=== PATIENT | female | born 1965 | race Caucasian/White ===

== ENCOUNTER → 2016-08-19 | Outpatient (CLI) | payer BC | LOC: RAD 08:21 | PROVIDERS: ATTEND Orthopaedic Surgery | DX: S42.252 Displaced fracture of greater tuberosity of left humerus (principal); X58.XXXD Exposure to other specified factors, subsequent encounter ==

== ENCOUNTER 2016-10-08 05:22 | Day surgery (SDC) | payer BC ==
[2016-10-01 09:30] LABS: HEMATOCRIT 42.6 % (36.0-47.0); HEMOGLOBIN 14.5 g/dL (12.0-15.5); HGB HCT DIFFERENCE 0.9; MEAN CORPUSCULAR HEMOGLOBIN 34.5 pg (27.0-33.4); MEAN CORPUSCULAR HGB CONC 34.1 g/dL (32.0-36.0); MEAN CORPUSCULAR VOLUME 101 fl (80-97); RED CELL DISTRIBUTION WIDTH 11.4 % (11.5-14.0)
[2016-10-01 09:39] LABS: APPEARANCE,URINE SLIGHTLY-CLOUDY; BILIRUBIN,URINE NEGATIVE (NEGATIVE); GLUCOSE, URINE NEGATIVE (NEGATIVE); KETONES,URINE NEGATIVE (NEGATIVE); LEUKOCYTE ESTERASE,URINE NEGATIVE (NEGATIVE); NITRITE,URINE NEGATIVE (NEGATIVE); PROTEIN,URINE NEGATIVE (NEGATIVE); URINE SPECIFIC GRAVITY 1.015
[2016-10-01 09:56] LABS: ANION GAP 10 (5-19); BLOOD UREA NITROGEN 12 mg/dL (7-20); CALCIUM 9.6 mg/dL (8.4-10.2); CARBON DIOXIDE 25 mmol/L (22-30); CHLORIDE 108 mmol/L (98-107); GLUCOSE 111 mg/dL (75-110); POTASSIUM 4.3 mmol/L (3.6-5.0); SODIUM 142.5 mmol/L (137-145)
--- NOTE | 2016-10-01 11:12 | EKG REPORT ---
SEVERITY:- ABNORMAL ECG - SINUS RHYTHM SHORT MI INTERVAL, ACCELERATED AV CONDUCTION LVH BY VOLTAGE PROLONGED QT INTERVAL : Confirmed by: Olivia Flores 01-Oct-2016 11:12:05
[~2016-10-08 05:22] MED LIST: CEFAZOLIN 2 GM/D5W RTU 2 GM/50 ML RTUPB IV PRN; LACTATED RINGERS 1000 ML IV PRN; LIDOCAINE 0.5% INJ-PF (5 MG/ML) 50 ML SDV SUBCUT PRN
[2016-10-08] MEDS ORDERED: EPINEPHRINE INJ/PF 1 MG/1 ML AMPULE ONE (06:08)
[2016-10-08] MEDS ORDERED: BUPIVACAINE HCL 0.5 % INJ/PF 30 ML SDV ONE (06:08)
[2016-10-08] MEDS ORDERED: KETOROLAC TROMETHAMINE 60 MG/2 ML SDV ONE (06:38)
[2016-10-08] MEDS ORDERED: HYDROMORPHONE HCL INJ/PF 2 MG/ML AMPULE ONE (06:38)
[2016-10-08] MEDS ORDERED: MIDAZOLAM 2 MG/2 ML INJ ONE (06:38)
[2016-10-08] MEDS ORDERED: FENTANYL CITRATE INJ/PF 250 MCG/5 ML AMPULE ONE (06:38)
[2016-10-08] MEDS ORDERED: ACETAMINOPHEN 100 ML IV ONE (06:38)
[2016-10-08] MEDS ORDERED: PROPOFOL INJ 200 MG/20 ML VIAL IV ONE (06:38)
[2016-10-08] MEDS ORDERED: MORPHINE SULFATE 10 MG/ML INJ IV PRN (06:55)
[2016-10-08] MEDS ORDERED: ONDANSETRON HCL INJ/PF 4 MG/2 ML SDV IV PRN ×2 (06:55→12:08)
[2016-10-08] MEDS ORDERED: FENTANYL CITRATE INJ/PF 100 MCG/2 ML AMPUL IV PRN ×3 (06:55)
[2016-10-08] MEDS ORDERED: MEPERIDINE HCL/PF INJ 25 MG/1 ML DISP.SYRIN IV PRN (06:55)
[2016-10-08] MEDS ORDERED: DIPHENHYDRAMINE HCL 50 MG/ML VIAL IV PRN (06:55)
[2016-10-08] MEDS ORDERED: LABETALOL HCL INJ 20 MG/4 ML DISP.SYRIN IV PRN (06:55)
[2016-10-08] MEDS ORDERED: PROMETHAZINE HCL INJ 25 MG/1 ML VIAL IV PRN (06:55)
[2016-10-08] MEDS ORDERED: EPHEDRINE SULFATE INJ 50 MG/1 ML AMPULE ONE (08:28)
[2016-10-08] MEDS ORDERED: LORAZEPAM INJ 2 MG/1 ML VIAL ONE (12:05)
[2016-10-08] MEDS ORDERED: FENTANYL CITRATE INJ/PF 100 MCG/2 ML AMPUL ONE (12:05)
[2016-10-08] MEDS ORDERED: OXYCODONE-ACETAMINOPHEN 5-325 MG TABLET PO PRN ×2 (12:06→12:07)
[2016-10-08] MEDS ORDERED: OXYCODONE HCL IR 5 MG TABLET PO PRN ×2 (12:07)
[2016-10-08] MEDS ORDERED: ROCURONIUM BROMIDE INJ 50 MG/5 ML VIAL IV ONE (14:22)
[2016-10-08] MEDS ORDERED: NEOSTIGMINE METHYLSULFATE 10 MG/10 ML VIAL ONE (14:22)
[2016-10-08] MEDS ORDERED: SUCCINYLCHOLINE CHLORIDE INJ 200 MG/10 ML VIAL ONE (14:22)
[2016-10-08] MEDS ORDERED: GLYCOPYRROLATE INJ 0.4 MG/2 ML VIAL ONE (14:22)
[2016-10-08 15:52] VITALS: BP 122/75
--- NOTE | 2016-11-11 16:40 | OPERATIVE REPORT E ---
Operative Report NAME: JEANETTE SOLANO : 1965 AGE: 51Y DATE OF SURGERY: 10/08/2016 ROOM: INDICATION: Patient is a 51-year-old female with: PREOPERATIVE DIAGNOSES: 1. A NONUNION OF GREATER TUBEROSITY FRACTURE. 2. FULL-THICKNESS SUPRASPINATUS TENDON TEAR. POSTOPERATIVE DIAGNOSES: 1. A NONUNION OF GREATER TUBEROSITY FRACTURE. 2. FULL-THICKNESS SUPRASPINATUS TENDON TEAR. OPERATION: Left shoulder arthroscopy with an open rotator cuff repair and greater tuberosity pre-osteal symphysis. SURGEON: LEANDER FALLON M.D. ANESTHESIA: General. ESTIMATED BLOOD LOSS: 50 mL. COMPLICATIONS: None. DISPOSITION: Stable to PACU. IMPLANT USED: Four partially-threaded cannulated screws and [employer] BioComposite anchors x1 and BioComposite SwiveLock x1. DESCRIPTION OF PROCEDURE: Patient was brought to the operating room, induced and intubated in supine position. Patient then was secured in a beach chair position where the left shoulder was prepped and draped in a normal sterile surgical fashion. Timeout was done identifying the left shoulder as the correct site. A #11 blade was used to establish the posterior portal and the scope was introduced in the glenohumeral joint. I established the anterior portal and placed a purple cannula. I debrided some synovium, which was inflamed. I visualized the intact long head of the biceps and labrum. I noticed a full tear of the supraspinatus tendon. I was able then to establish a lateral portal where I placed my camera and then from the posterior portal, used a radiofrequency ablator and shaver to expose the greater tuberosity fracture, which was retracted posteromedially. I used a dar then to dar the bone and freshened up the edge. I used the same dar then to freshen up the defect in the greater tuberosity. Once I was satisfied with preparation of the bone, I then turned my attention to removing the instruments and using the lateral portal and extending it distally 2 to 4 cm. I split the deltoid. I placed a retractor hemostasis utilizing a Bovie. After retracting the deltoid and exposing the subacromial space, I was able to grab the fragment and externally rotate the arm and reduce the fragment almost about 90% of its previous position. I was able to place some K-wires to hold it in place and then proceeded to use cannulated screws spanning over these K-wires and measuring and placing appropriate screws with washers. I used the total of 4 screws to hold the greater tuberosity fragment and secured it onto the humerus. I then turned my attention to the rotator cuff where I placed a posterior anchor and used a to pass the FiberWires through the full-thickness tear of the rotator cuff tear. I then proceeded to tie knots and then secure the strands with a SwiveLock establishing . I used an awl to prepare the hole and then placed the PushLock with their strands to the tendon to the bone. Remaining strands were cut with the scissors. I have then proceed to close my wound using 0-Vicryl to approximate the deltoid and 2-0 Vicryl for the dermis and 2-0 nylon for the skin. The 3 portals were closed with 3-0 nylon. Xeroform and 4 x 4 dressing was applied to the wound and then taped with Medipore tape. Patient's drapes were removed and placed in a sling. Patient was then extubated successfully in the supine position. Patient was then taken to PACU in stable condition. DICTATING PHYSICIAN: Vladimir GARIBAY [id number] PHY#: [id number] ID: [id number] JOB#: [id number] ACCT: [id number] cc:LEANDER ADAMS M.D. >
== END 2016-10-08 15:50 | disposition home or self-care (01) ==
LOC: OROUT 05:22
PROVIDERS: ATTEND Orthopaedic Surgery
PROC: 0PSD04Z Reposition Left Humeral Head with Internal Fixation Device, Open Approach (ICD-10-PCS; 2016-10-08)
PROC: 0RJK4ZZ Inspection of Left Shoulder Joint, Percutaneous Endoscopic Approach (ICD-10-PCS; 2016-10-08)
PROC: 0LM20ZZ Reattachment of Left Shoulder Tendon, Open Approach (ICD-10-PCS; principal; 2016-10-08 07:30)
DX: S42.252 Displaced fracture of greater tuberosity of left humerus (principal); X58.XXXD Exposure to other specified factors, subsequent encounter; M75.122 Complete rotator cuff tear or rupture of left shoulder, not specified as traumatic; B19.20 Unspecified viral hepatitis C without hepatic coma; Z88.5 Allergy status to narcotic agent; Z87.891 Personal history of nicotine dependence; Z87.442 Personal history of urinary calculi
CPT/HCPCS: 93005; 36415; 85027; 80048; 81001; 71020; 73030; 93010; 23410; 24430; 29805; L3650; C1713 ×2; C1769; J2250; J3490 ×2; J0171; J1885; J3010; J1170; J2060; J0330; J2704; J0690; J0131; 01630

== ENCOUNTER → 2017-01-14 | Outpatient (CLI) | payer BC ==
--- NOTE | 2017-01-14 09:39 | RADIOLOGY REPORT (SQ) ---
EXAM DESCRIPTION: CHEST PA/LATERAL COMPLETED DATE/TIME: 01/14/2017 9:09 am REASON FOR STUDY: PRE-OP COMPARISON: 10/01/2016 EXAM PARAMETERS: NUMBER OF VIEWS: two views TECHNIQUE: Digital Frontal and Lateral radiographic views of the chest acquired. RADIATION DOSE: NA LIMITATIONS: none FINDINGS: LUNGS AND PLEURA: No opacities, masses or pneumothorax. No pleural effusion. MEDIASTINUM AND HILAR STRUCTURES: No masses or contour abnormalities. HEART AND VASCULAR STRUCTURES: Heart normal size. No evidence for failure. BONES: No acute findings. Or cannulated lag screws are noted engaging the left proximal humerus. HARDWARE: None in the chest. OTHER: No other significant finding. IMPRESSION: NO SIGNIFICANT RADIOGRAPHIC FINDING IN THE CHEST. TECHNICAL DOCUMENTATION: JOB ID: [id number] [employer]- All Rights Reserved
[2017-01-14 09:40] LABS: ABSOLUTE EOSINOPHILS # (AUTO) 0.1 10^3/uL (0.0-0.6); ABSOLUTE LYMPHOCYTES (AUTO) 2.5 10^3/uL (0.5-4.7); ABSOLUTE MONOCYTES (AUTO) 0.3 10^3/uL (0.1-1.4); ABSOLUTE NEUT (AUTO) 2.2 10^3/uL (1.7-8.2); BASOPHILS % (AUTO) 0.6 % (0-2); EOSINOPHILS % (AUTO) 2.9 % (0-6); HEMATOCRIT 41.9 % (36.0-47.0); HEMOGLOBIN 13.9 g/dL (12.0-15.5); HGB HCT DIFFERENCE -0.2; LYMPHOCYTES % (AUTO) 47.5 % (13-45); MEAN CORPUSCULAR HEMOGLOBIN 33.1 pg (27.0-33.4); MEAN CORPUSCULAR HGB CONC 33.2 g/dL (32.0-36.0); MEAN CORPUSCULAR VOLUME 100 fl (80-97); MONOCYTES % (AUTO) 6.1 % (3-13); RED BLOOD COUNT 4.21 10^6/uL (3.72-5.28); RED CELL DISTRIBUTION WIDTH 12.3 % (11.5-14.0); SEGMENTED NEUTROPHILS % (AUTO) 42.9 % (42-78); WHITE BLOOD COUNT 5.2 10^3/uL (4.0-10.5)
[2017-01-14 09:43] LABS: APPEARANCE,URINE SLIGHTLY-CLOUDY; BILIRUBIN,URINE NEGATIVE (NEGATIVE); GLUCOSE, URINE NEGATIVE (NEGATIVE); KETONES,URINE TRACE mg/dL (NEGATIVE); LEUKOCYTE ESTERASE,URINE NEGATIVE (NEGATIVE); NITRITE,URINE NEGATIVE (NEGATIVE); PROTEIN,URINE NEGATIVE (NEGATIVE); URINE SPECIFIC GRAVITY 1.019
[2017-01-14 10:15] LABS: ANION GAP 13 (5-19); BLOOD UREA NITROGEN 9 mg/dL (7-20); CALCIUM 8.9 mg/dL (8.4-10.2); CARBON DIOXIDE 22 mmol/L (22-30); CHLORIDE 104 mmol/L (98-107); CREATININE RESULT 0.57 mg/dL (0.52-1.25); GLUCOSE 120 mg/dL (75-110); POTASSIUM 4.1 mmol/L (3.6-5.0); SODIUM 138.7 mmol/L (137-145)
--- NOTE | 2017-01-14 21:30 | EKG REPORT ---
SEVERITY:- ABNORMAL ECG - SINUS RHYTHM BORDERLINE LEFT AXIS DEVIATION NONSPECIFIC T ABNORMALITIES, ANTERIOR LEADS : Confirmed by: Olivia Flores 14-Jan-2017 21:30:31
== END ==
LOC: OD 08:22
PROVIDERS: ATTEND Orthopaedic Surgery
DX: Z01.818 Encounter for other preprocedural examination (principal)
CPT/HCPCS: 36415; 71020; 80048; 81001; 85025; 93005; 93010

== ENCOUNTER 2017-02-04 05:31 | Inpatient (IN) | payer BC ==
[~2017-02-04 05:31] MED LIST changes: +BUPIVACAINE INJ/PF LIPOSOME/PF 266 MG/20 ML SDV INJ PRN; +CEFAZOLIN INJ 1 GM VIAL ONE; +IBUPROFEN 800 MG in NORMAL SALINE 250 ML IV PRN; -LACTATED RINGERS 1000 ML IV PRN; +LANSOPRAZOLE 15 MG TAB.RAP.DR PO PRN; -LIDOCAINE 0.5% INJ-PF (5 MG/ML) 50 ML SDV SUBCUT PRN; +OXYCODONE HCL SR 10 MG TABLET PO PRN; +RINGERS SOLUTION,LACTATED 1,000 ML IV PRN
[2017-02-04] MEDS ORDERED: BUPIVACAINE HCL 0.5%-EPI 1:200000 INJ/PF 30 ML VIAL ONE ×2 (05:44)
[2017-02-04] MEDS ORDERED: FENTANYL CITRATE INJ/PF 250 MCG/5 ML AMPULE ONE (06:46)
[2017-02-04] MEDS ORDERED: MIDAZOLAM 2 MG/2 ML INJ ONE (06:47)
[2017-02-04] MEDS ORDERED: EPHEDRINE SULFATE INJ 50 MG/1 ML AMPULE ONE (06:47)
[2017-02-04] MEDS ORDERED: ACETAMINOPHEN 100 ML IV ONE (06:48)
[2017-02-04] MEDS ORDERED: IBUPROFEN INJ 800 MG/8 ML VIAL IV ONE (06:48)
[2017-02-04] MEDS ORDERED: PROPOFOL INJ 200 MG/20 ML VIAL IV ONE (06:48)
[2017-02-04] MEDS ORDERED: DEXAMETHASONE SOD PHOSPHATE INJ 4 MG/1 ML VIAL ONE (06:48)
[2017-02-04] MEDS ORDERED: ONDANSETRON HCL INJ/PF 4 MG/2 ML SDV ONE (06:48)
[2017-02-04] MEDS ORDERED: HYDROMORPHONE HCL INJ/PF 2 MG/ML AMPULE ONE (06:49)
[2017-02-04] MEDS ORDERED: LIDOCAINE 2% INJ-PF (20 MG/ML) 10 ML AMPUL ONE (07:16)
[2017-02-04] MEDS ORDERED: TRANEXAMIC ACID INJ/PF 1,000 MG/10 ML SDV IV ONE (07:16)
[2017-02-04] MEDS ORDERED: BUPIVACAINE INJ/PF LIPOSOME/PF 266 MG/20 ML SDV ONE (07:26)
[2017-02-04] MEDS ORDERED: SUCCINYLCHOLINE CHLORIDE INJ 200 MG/10 ML VIAL ONE (07:43)
[2017-02-04] MEDS ORDERED: PHENYLEPHRINE HCL INJ/PF 10 MG/1 ML SDV ONE (07:43)
[2017-02-04 08:35] LABS: HEMATOCRIT 40.8 % (36.0-47.0); HEMOGLOBIN 13.5 g/dL (12.0-15.5); HGB HCT DIFFERENCE -0.3; MEAN CORPUSCULAR HEMOGLOBIN 32.6 pg (27.0-33.4); MEAN CORPUSCULAR HGB CONC 33.2 g/dL (32.0-36.0); MEAN CORPUSCULAR VOLUME 98 fl (80-97); RED BLOOD COUNT 4.15 10^6/uL (3.72-5.28); RED CELL DISTRIBUTION WIDTH 12.2 % (11.5-14.0); WHITE BLOOD COUNT 5.5 10^3/uL (4.0-10.5)
[2017-02-04] MEDS ORDERED: DIPHENHYDRAMINE HCL 50 MG/ML VIAL IV PRN (10:10)
[2017-02-04] MEDS ORDERED: FENTANYL CITRATE INJ/PF 100 MCG/2 ML AMPUL IV PRN ×3 (10:10)
[2017-02-04] MEDS ORDERED: MORPHINE SULFATE 10 MG/ML INJ IV PRN (10:10)
[2017-02-04] MEDS ORDERED: ONDANSETRON HCL INJ/PF 4 MG/2 ML SDV IV PRN (10:10)
[2017-02-04] MEDS ORDERED: MEPERIDINE HCL/PF INJ 25 MG/1 ML DISP.SYRIN IV PRN (10:10)
[2017-02-04] MEDS ORDERED: PROMETHAZINE HCL INJ 25 MG/1 ML VIAL IV PRN ×2 (10:10)
[2017-02-04] MEDS ORDERED: THROMBIN (BOVINE) 5000 UNIT EPITAXIS KIT ONE (11:44)
[2017-02-04 13:15] LABS: ABSOLUTE LYMPHOCYTES (AUTO) 1.2 10^3/uL (0.5-4.7); ABSOLUTE MONOCYTES (AUTO) 0.2 10^3/uL (0.1-1.4); ABSOLUTE NEUT (AUTO) 9.8 10^3/uL (1.7-8.2); BASOPHILS % (AUTO) 0.3 % (0-2); EOSINOPHILS % (AUTO) 0.1 % (0-6); HEMATOCRIT 42.1 % (36.0-47.0); HEMOGLOBIN 13.7 g/dL (12.0-15.5); LYMPHOCYTES % (AUTO) 10.5 % (13-45); MEAN CORPUSCULAR HEMOGLOBIN 31.2 pg (27.0-33.4); MEAN CORPUSCULAR HGB CONC 32.7 g/dL (32.0-36.0); MEAN CORPUSCULAR VOLUME 95 fl (80-97); MONOCYTES % (AUTO) 1.9 % (3-13); RED BLOOD COUNT 4.41 10^6/uL (3.72-5.28); RED CELL DISTRIBUTION WIDTH 14.3 % (11.5-14.0); SEGMENTED NEUTROPHILS % (AUTO) 87.2 % (42-78)
[2017-02-04 13:48] LABS: WHITE BLOOD COUNT 11.2 10^3/uL (4.0-10.5)
[2017-02-04] MEDS ORDERED: RINGERS SOLUTION,LACTATED 1,000 ML IV PRN (14:15)
[2017-02-04] MEDS ORDERED: HYDROCODONE/ACETAMINOPHEN 5-325 MG TABLET PO PRN (14:16)
--- NOTE | 2017-02-04 14:20 | RADIOLOGY REPORT (SQ) ---
EXAM DESCRIPTION: SHOULDER LEFT 1 VIEW COMPLETED DATE/TIME: 02/04/2017 2:05 pm REASON FOR STUDY: POST L TOTAL SHOULDER REVERSAL PACU BAY 7 COMPARISON: September 2016 TECHNIQUE: AP view of the left shoulder LIMITATIONS: None. FINDINGS: Patient is status post left shoulder replacement. The prosthesis appears well seated in t he glenoid and proximal humeral medullary canal in this 1 projection. IMPRESSION: Status post left total shoulder replacement. TECHNICAL DOCUMENTATION: JOB ID: [id number] [employer]- All Rights Reserved
[2017-02-04] MEDS: CEFAZOLIN SODIUM 2 GM in DEXTROSE 5%-WATER 100 ML IV SCH (18:27)
[2017-02-04] MEDS: HYDROCODONE/ACETAMINOPHEN 5-325 MG TABLET PO PRN (21:46)
[2017-02-04] MEDS: OXYCODONE HCL SR 10 MG TABLET PO SCH (21:52)
[2017-02-04] MEDS ORDERED: ASPIRIN 325 MG TABLET, ENT COATED PO SCH (22:00)
[2017-02-04] MEDS ORDERED: ASPIRIN 325 MG TABLET PO SCH (22:00)
[2017-02-04] MEDS ORDERED: ESCITALOPRAM OXALATE 10 MG TABLET PO SCH (22:00)
[2017-02-04 22:19] LABS: ABSOLUTE LYMPHOCYTES (AUTO) 0.9 10^3/uL (0.5-4.7); ABSOLUTE MONOCYTES (AUTO) 0.6 10^3/uL (0.1-1.4); ABSOLUTE NEUT (AUTO) 6.7 10^3/uL (1.7-8.2); BASOPHILS % (AUTO) 0.6 % (0-2); HEMATOCRIT 34.2 % (36.0-47.0); HEMOGLOBIN 11.8 g/dL (12.0-15.5); HGB HCT DIFFERENCE 1.2; LYMPHOCYTES % (AUTO) 10.6 % (13-45); MEAN CORPUSCULAR HEMOGLOBIN 33.1 pg (27.0-33.4); MEAN CORPUSCULAR HGB CONC 34.5 g/dL (32.0-36.0); MEAN CORPUSCULAR VOLUME 96 fl (80-97); RED BLOOD COUNT 3.57 10^6/uL (3.72-5.28); RED CELL DISTRIBUTION WIDTH 14.8 % (11.5-14.0); SEGMENTED NEUTROPHILS % (AUTO) 81.8 % (42-78); WHITE BLOOD COUNT 8.2 10^3/uL (4.0-10.5)
[2017-02-05] MEDS: CEFAZOLIN SODIUM 2 GM in DEXTROSE 5%-WATER 100 ML IV SCH ×2 (01:47→09:38)
[2017-02-05] MEDS: HYDROCODONE/ACETAMINOPHEN 5-325 MG TABLET PO PRN ×2 (01:48→07:35)
[2017-02-05 07:19] LABS: ANION GAP 8 (5-19); BLOOD UREA NITROGEN 12 mg/dL (7-20); CALCIUM 8.7 mg/dL (8.4-10.2); CARBON DIOXIDE 23 mmol/L (22-30); CHLORIDE 108 mmol/L (98-107); CREATININE RESULT 0.62 mg/dL (0.52-1.25); GLUCOSE 131 mg/dL (75-110); POTASSIUM 4.9 mmol/L (3.6-5.0); SODIUM 139.3 mmol/L (137-145)
[2017-02-05 07:40] LABS: ABSOLUTE LYMPHOCYTES (AUTO) 1.5 10^3/uL (0.5-4.7); ABSOLUTE MONOCYTES (AUTO) 1.1 10^3/uL (0.1-1.4); ABSOLUTE NEUT (AUTO) 6.8 10^3/uL (1.7-8.2); BASOPHILS % (AUTO) 0.1 % (0-2); EOSINOPHILS % (AUTO) 0.1 % (0-6); HEMATOCRIT 31.7 % (36.0-47.0); HEMOGLOBIN 10.7 g/dL (12.0-15.5); HGB HCT DIFFERENCE 0.4; LYMPHOCYTES % (AUTO) 15.7 % (13-45); MEAN CORPUSCULAR HEMOGLOBIN 31.7 pg (27.0-33.4); MEAN CORPUSCULAR HGB CONC 33.7 g/dL (32.0-36.0); MEAN CORPUSCULAR VOLUME 94 fl (80-97); MONOCYTES % (AUTO) 11.7 % (3-13); RED BLOOD COUNT 3.37 10^6/uL (3.72-5.28); RED CELL DISTRIBUTION WIDTH 14.5 % (11.5-14.0); SEGMENTED NEUTROPHILS % (AUTO) 72.4 % (42-78); WHITE BLOOD COUNT 9.4 10^3/uL (4.0-10.5)
[2017-02-05] MEDS: OXYCODONE HCL SR 10 MG TABLET PO SCH (09:39)
[2017-02-05] MEDS ORDERED: OXYCODONE HCL SR 10 MG TABLET PO ONE (12:00)
--- NOTE | 2017-02-05 16:41 | PDOC DISCHARGE SUMMARY ---
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 At this point the patient debated staying with a reverse total shoulder which she finally agreed to proceed and consent for surgery. She understands the she will require further surgeries in the future. She finally agreed to this patient decided to undergo removal screws with left reverse total shoulder arthroplasty. Patient denies any numbness or tingling or paresthesias. Hospital Course Hospital Course: Today postop day 1 patient pain is adequately controlled with the OxyContin and hydrocodone. Denies any issues overnight. Has some ecchymosis and mild drainage the most part incisions are dry clean and intact. She had normal vital signs within normal parameters. Intact radial ulnar median nerve distribution of both sensory and motor. Limited range of motion as expected. Sling is intact in proper place. Patient pain is actually controlled and will be okay to be discharged today. Patient instructed to follow-up in 2 weeks in the office. Told to change her dressing in 5 days and okay to shower after that. Continue pendulum exercises. Physical Exam Vital Signs: Temp Pulse Resp BP Pulse Ox 37.2 C 96 18 106/70 97 02/05/17 15:20 02/05/17 15:20 02/05/17 15:20 02/05/17 15:20 02/05/17 15:20 Intake & Output 02/04/17 02/05/17 02/06/17 06:59 06:59 06:59 Intake Total 1000 6145 450 Output Total 2675 360 Balance 1000 3470 90 Weight 90.72 kg General appearance: PRESENT: no acute distress Eye exam: PRESENT: EOMI, other - Pinpoint pupils which are symmetric.. ABSENT: nystagmus Respiratory exam: PRESENT: symmetrical, unlabored. ABSENT: accessory muscle use , chest wall tenderness Pulses: PRESENT: normal radial pulses Neurological exam: PRESENT: alert, awake, oriented to person, oriented to place , oriented to time Psychiatric exam: PRESENT: appropriate affect, normal mood Skin exam: PRESENT: intact, other - Dressing dry clean and intact. Adult Front & Back Image: 1 - Dressing is dry clean and intact with minimal bleeding. Neurovascular intact distally. Sling in proper position and placement. Results Laboratory Results: 02/05/17 05:53 02/05/17 05:53 02/04/17 02/04/17 02/05/17 05:50 22:10 05:53 WBC 8.2 9.4 RBC 3.57 L 3.37 L Hgb 11.8 L 10.7 L Hct 34.2 L 31.7 L MCV 96 94 MCH 33.1 31.7 MCHC 34.5 33.7 RDW 14.8 H 14.5 H Plt Count 90 L 97 L Seg Neutrophils % 81.8 H 72.4 Lymphocytes % 10.6 L 15.7 Monocytes % 7.0 11.7 Eosinophils % 0.0 0.1 Basophils % 0.6 0.1 Absolute Neutrophils 6.7 6.8 Absolute Lymphocytes 0.9 1.5 Absolute Monocytes 0.6 1.1 Absolute Eosinophils 0.0 0.0 Absolute Basophils 0.0 0.0 Sodium Potassium Chloride Carbon Dioxide Anion Gap BUN Creatinine Est GFR ( Amer) Est GFR (Non-Af Amer) Glucose Calcium Blood Type A POSITIVE Antibody Screen NEGATIVE 02/05/17 05:53 WBC RBC Hgb Hct MCV MCH MCHC RDW Plt Count Seg Neutrophils % Lymphocytes % Monocytes % Eosinophils % Basophils % Absolute Neutrophils Absolute Lymphocytes Absolute Monocytes Absolute Eosinophils Absolute Basophils Sodium 139.3 Potassium 4.9 Chloride 108 H Carbon Dioxide 23 Anion Gap 8 BUN 12 Creatinine 0.62 Est GFR ( Amer) > 60 Est GFR (Non-Af Amer) > 60 Glucose 131 H Calcium 8.7 Blood Type Antibody Screen Impressions: Shoulder X-Ray 02/04/17 13:49 IMPRESSION: Status post left total shoulder replacement. Status: Image reviewed by me Plan Discharge Plan: 51-year-old female who is postop day 1 from left reverse total shoulder arthroplasty and removal of previous screws. Patient adequately pain control and will be discharged today home. Patient will follow-up in 10-14 days. Instructed to remove the dressing in 5 days and shower.
[2017-02-05 17:03] VITALS: BP 108/53
--- NOTE | 2017-03-08 12:34 | Operative Report ---
Operative Report DATE OF SURGERY: 02/04/17 PREOPERATIVE DIAGNOSIS: Left failed ORIF of greater tuberosity with failed rotator cuff repair POSTOPERATIVE DIAGNOSIS: Same OPERATION: Removal of screws and conversion to left reverse total shoulder arthroplasty SURGEON: LEANDER FALLON ANESTHESIA: GA TISSUE REMOVED OR ALTERED: None COMPLICATIONS: None ESTIMATED BLOOD LOSS: 300 mL INTRAOPERATIVE FINDINGS: As above PROCEDURE: Patient was brought to the operating room where she was induced and intubated in supine position. Patient then was placed in a beachchair position the left upper extremity was prepped and draped in a normal sterile surgical fashion. Timeout was done identifying the left shoulder as the correct site. A standard deltopectoral approach was done to the left shoulder and subscapularis tendon was then reflected intact. The biceps were cut and tagged which was eventually incorporated into the soft tissue doing a soft tissue tenodesis.. Through this incision I was able to do my humeral head cut using the appropriate equipment from [employer]. I could not get to the 4 screws that were within the greater tuberosity fragment that had gone posteriorly so had to do the same deltoid split incision laterally. Through this incision I was able to pull on the fragment and remove the screws. I then was able to do this and I proceeded to complete the reverse total shoulder by drilling and placing my baseplate on the glenoid. I put a trial in the humerus and then I proceeded to trial and use the appropriate sizes. These were placed and secured. The stem was uncemented and press-fit. The glenosphere was secured onto the baseplate. I did drill holes in the humerus to then secure the subscapularis tendon back onto the humerus. Copious irrigation was used to clean the extremity also satisfied with the stability and range of motion and reattachment of the cyst subscapularis tendon I proceeded then to close the deltopectoral interval and the with 0 Vicryl and then the subcutaneous tissue and dermis with 2-0 Vicryl and suzette for skin. The lateral split on the deltoid was then reattached with 0 Vicryl and 2-0 Vicryl and then suzette for skin. Xeroform 4 x 4 dressing was applied. These were secured with Medipore tape. Patient was placed in a sling and successfully extubated and sent to PACU in a stable condition after being undraped.
== END 2017-02-05 17:15 | disposition home or self-care (01) | DRG 483 ==
LOC: INOR 05:31 → 4W 15:03
PROVIDERS: ADMIT Orthopaedic Surgery; ATTEND Orthopaedic Surgery
PROC: 0RPK04Z Removal of Internal Fixation Device from Left Shoulder Joint, Open Approach (ICD-10-PCS; 2017-02-04)
PROC: 0RRK00Z Replacement of Left Shoulder Joint with Reverse Ball and Socket Synthetic Substitute, Open Approach (ICD-10-PCS; principal; 2017-02-04 07:30)
DX: T84.84XA Pain due to internal orthopedic prosthetic devices, implants and grafts, initial encounter (principal); F32.9 Major depressive disorder, single episode, unspecified; F41.9 Anxiety disorder, unspecified; Z90.710 Acquired absence of both cervix and uterus; Z87.891 Personal history of nicotine dependence; Z82.49 Family history of ischemic heart disease and other diseases of the circulatory system; Z80.9 Family history of malignant neoplasm, unspecified; Z83.6 Family history of other diseases of the respiratory system; Z82.3 Family history of stroke
CPT/HCPCS: 01630; 36415; 36430; 80048; 85025; 85049; 86850; 86900; 86901; 86920; 88304; 88311; C9290; J0131; J0330; J0690; J1100; J1170; J1644; J1741; J2250; J2370; J2405; J2704; J3010; J3490; L3650; P9016; P9017; P9035